=== PATIENT | male | born 1985 | race Caucasian/White ===

== ENCOUNTER 2017-03-11 12:00 | Emergency (ER) | payer SELFPAY ==
[2017-03-11 12:06] VITALS: BP 144/81
[2017-03-11] MEDS ORDERED: Ibuprofen TAB* 800 MG PO ONE (13:07)
--- NOTE | 2017-03-11 13:27 | ED ---
Lower Extremity - HPI Summary HPI Summary: Pt here w/ Rt foot pain after stepping onto it awkwardly today. Was at work as a site operations manager metal fabricator apprentice and as he stepped through an opening in a wall w/ a box in his hands, he misstepped and had pain as well as "popping" in his Rt foot/ ankle. Has some swelling along his instep - tender to touch, bear weight and move. Denies new onset numbness, tingling, weakness here - h/o injury while [place] and had surgery in this ankle/foot in the past - has baseline limited ROM as a result. - History of Current Complaint Chief Complaint: EDExtremityLower Stated Complaint: RIGHT FOOT INJURY Time Seen by Provider: 03/11/17 12:20 Hx Obtained From: Patient Pain Intensity: 7 - Allergies/Home Medications Allergies/Adverse Reactions: Allergies Allergy/AdvReac Type Severity Reaction Status Date / Time Penicillins Allergy Hives Verified 03/11/17 12:04 PMH/Surg Hx/FS Hx/Imm Hx Previously Healthy: Yes Endocrine/Hematology History: Denies: Hx Anticoagulant Therapy, Hx Blood Disorders Musculoskeletal History: Reports: Hx Arthritis - Rt ankle/foot - surgical repair s/p war injury Sensory History: Reports: Hx Contacts or Glasses Opthamlomology History: Reports: Hx Contacts or Glasses Psychiatric History: Reports: Hx Anxiety, Hx Depression - takes amitriptyline Infectious Disease History: Denies: Traveled Outside the [place] in Last 30 Days - Social History Occupation: Employed Full-time Lives: With Family Alcohol Use: Occasionally - couple of times a month Hx Substance Use: Yes Substance Use Type: Reports: Marijuana - prescribed for chronic pain Hx Tobacco Use: No Smoking Status (MU): Never Smoked Tobacco Review of Systems Positive: no symptoms reported Musculoskeletal: Other - see HPI Skin: Negative Neurological: Negative Psychological: Normal All Other Systems Reviewed And Are Negative: Yes Physical Exam Triage Information Reviewed: Yes Vital Signs On Initial Exam: Initial Vitals Temp Pulse Resp BP Pulse Ox 98.2 F 81 16 144/81 97 03/11/17 12:04 03/11/17 12:04 03/11/17 12:04 03/11/17 12:04 03/11/17 12:04 Vital Signs Reviewed: Yes Appearance: Positive: Well-Appearing, No Pain Distress, Well-Nourished Skin: Positive: Warm, Dry - no erythema, no ecchymosis over affected - healed surgical scar over Rt intep/annkle area Eyes: Positive: EOMI ENT: Positive: Hearing grossly normal Cardiovascular: Positive: Pulses are Symmetrical in both Upper and Lower Extremities Musculoskeletal: Positive: Limited @ - Rt ankle and toes limited - pt reports some is d/t pain but most is baseline stiffness from previous surgery, Pain @ - Rt instep w/ edema and TTP Neurological: Positive: Normal, Sensory/Motor Intact - as above, Alert, Oriented to Person Place, Time, CN Intact II-III Psychiatric: Positive: Normal Diagnostics - Vital Signs Vital Signs Temp Pulse Resp BP Pulse Ox 03/11/17 12:04 98.2 F 81 16 144/81 97 - Laboratory Lab Statement: Any lab studies that have been ordered have been reviewed, and results considered in the medical decision making process. Lower Extremity Course/Dx - Diagnoses Provider Diagnoses: Right foot sprain Discharge - Discharge Plan Condition: Stable Disposition: HOME Patient Education Materials: Foot Sprain (ED), Crutch Instructions (ED) Forms: *Work Release Referrals: Shruti Shearer [Primary Care Provider] - Additional Instructions: Rest, ice, elevate, wrap with LAVERNE wrap Avoid weight bearing by using crutches Take ibuprofen with food as needed for pain, swelling Follow-up with PCP next week of pain persists.
--- NOTE | 2017-03-11 13:54 | RAD ---
Indication: Right foot pain. 3 views of the right foot demonstrates no fracture. There is fusion of the scaphoid to the talus and calcaneus to the talus. IMPRESSION: Fusion of the right foot no fracture.
== END 2017-03-11 14:30 | disposition home or self-care (01) ==
LOC: ED 12:00
DX: S93.601A Unspecified sprain of right foot, initial encounter (principal); X50.1XXA Overexertion from prolonged static or awkward postures, initial encounter; Y92.9 Unspecified place or not applicable; Z88.0 Allergy status to penicillin
CPT/HCPCS: 99282; A9270-GY

== ENCOUNTER → 2017-08-21 05:49 | Day surgery (SDC) | payer OTHER ==
[~2017-08-21 05:49] MED LIST: Atracurium* 10 MG/ML 10 ML VIAL ONE; Buffered Lidocaine 0.9% SYRIN* 5 ML/SYR SYRINGE INTRADERM ONE; Buffered Lidocaine 0.9% SYRIN* 5 ML/SYR SYRINGE ONE; Bupivacaine 0.5% SDV PF* 10-30ML VIAL ONE; Clindamycin 900 MG IVPREMIX(* 900 MG/50 ML SDV IV ONE; Dexamethasone IV* 4 MG/ML 1 ML (4 MG) IV SLOW PU ONE; Dexamethasone IV* 4 MG/ML 1 ML (4 MG) ONE; DiMENhydriNATE IV* 50 MG/ML VIAL IV PUSH PRN; Famotidine IV* 10 MG/ML 2 ML (20 mg) IV ONE; Famotidine IV* 10 MG/ML 2 ML (20 mg) ONE; HYDROmorphone INJ* 1 MG/ML CARPUJECT SYRINGE IV PRN; Ketorolac INJ* 30 MG/ML 1 ML VIAL ONE; Lidocaine 2% PF * 5 ML VIAL ONE; Midazolam* 1 MG/ML 10 ML VIAL (10 MG) ONE; Naloxone* 0.4 MG/ML 1 ML VIAL IV PRN; Ondansetron INJ* 2 MG/ML VIAL IV PRN; Ondansetron INJ* 2 MG/ML VIAL ONE; Propofol* 10 MG/ML 20 ML BTL IV PUSH ONE; fentaNYL* 50 MCG/ML 2 ML VIAL (100 MCG VIAL) IV PRN; fentaNYL* 50 MCG/ML 2 ML VIAL (100 MCG VIAL) ONE; fentaNYL* 50 MCG/ML 5 ML VIAL (250 MCG VIAL) ONE; oxyCODONE/Acetamin 5/325 MG* TAB ONE; oxyCODONE/Acetamin 5/325 MG* TAB PO PRN
[2017-08-21 11:02] VITALS: BP 155/98
--- NOTE | 2017-08-22 01:20 | OP ---
DATE OF OPERATION: 08/21/17 - [facility] DATE OF : 87 SURGEON: Charly Michel MD RN TEACHER: SHUKRI Schaefer ANESTHESIOLOGIST: Dr. Joshua Lira. ANESTHESIA: General endotracheal anesthesia with local anesthesia provided by the surgeon. PRE-OP DIAGNOSES: 1. Painful retained hardware, right foot. 2. Anterior tibial tendonitis and tenosynovitis. POST-OP DIAGNOSES: 1. Painful retained hardware, right foot. 2. Anterior tibial tendonitis and tenosynovitis. OPERATIVE PROCEDURE: 1. Removal of deep implants from right foot. 2. Tenolysis of right anterior tibial tendon. ESTIMATED BLOOD LOSS: Minimal. TOURNIQUET TIME: 27 minutes with an ankle Esmarch tourniquet. SPECIMENS: None. STATUS: Stable from the operating room to the PACU and then home. IMPLANTS: None implanted. INDICATIONS FOR PROCEDURE: Javier is a of the [place] war, who sustained traumatic injury to his right hindfoot and has had multiple surgeries. He has been having pain along his anterior tibial tendon as well as pain from his hardware. We discussed both nonoperative and operative treatment options, and he decided he would like to move forward with surgery to remove the hardware and explore the anterior tibial tendon. Our discussions regarding surgery included, but were not limited to the risks of surgery, which are infection, wound problems, nerve injury, neuroma, RSD, persistent symptoms, broken or retained hardware, need for further surgery and event the remote chance of a catastrophic complication. DESCRIPTION OF PROCEDURE: The patient was seen in the preoperative holding unit and an informed written consent was obtained. The appropriate extremity was marked. The patient was then brought to the operating room and carefully positioned on the operating room table. Anesthesia was induced. All bony prominences were padded with great care. A chlorhexidine based pre-scrub was performed followed by a standard prep and drape with ChloraPrep. Surgical safety pause was then conducted in which we confirmed the appropriate patient, extremity, planned procedure, availability of equipment, indication and administration of prophylactic antibiotics and DVT prophylaxis in the form of compression boot on the nonsurgical extremity. I began with an Esmarch exsanguination and placement of an ankle Esmarch tourniquet. We then used C-arm to brayden out the heads of the screws, which were consistent with where his incisions were. I utilized the prior anteromedial ankle incision and was careful to avoid injury to the saphenous nerve and vein. The anterior tibial tendon was exposed and was sheath and a large amount of scar especially distally. This was all released. There was some inflammatory tenosynovium as well, which was debrided sharply. Fluoroscopy was then used to identify the talonavicular fusion screws. One of the screws was actually sitting just deep to the anterior tibial tendon with a prominent head. This was exposed without detaching the anterior tibial tendon. There was some overgrowth of bone, which was removed with a rongeur and osteotome. I then removed the screw without any difficulty. Some more adhesions of the anterior tibial tendon were then released in the area of the screw head as well. Fluoroscopy was then utilized to find the inferior talonavicular fusion screw, which also had some bony overgrowth, which was removed in the same manner. The screw was also removed without difficulty. Attention was then turned to the heel where fluoroscopy was used to confirm the placement of the subtalar fusion screws. A 1-cm incision was made over the screw heads and blunt dissection was used to go down to the level of the screw heads. A guidewire for the 6.5 cannulated screw was placed into each of the screws and the screws were removed without difficulty. The anterior tibial tendon was then visualized again and all remaining adhesions and inflamed tenosynovium was excised sharply. The anterior tibial tendon remained in continuity after this. At this time, both of the wounds were copiously irrigated and then closed in a layered fashion utilizing 3-0 Monocryl and 3-0 nylon. A sterile dressing was applied. He was then awakened from anesthesia and transferred to the recovery room in stable condition. There were no complications. All needle and sponge counts were correct at the end of the case. ATTESTATION: I attest that I was present, scrubbed and performed the entire procedure myself. POSTOPERATIVE PLAN: Javier will remain nonweightbearing for the next two weeks while the wounds heal. He will then follow up at that time for a suture removal and Steri-Strips application. [id number]/CPS #: [id number] BASIA
--- NOTE | 2017-08-27 13:45 | RAD ---
INDICATION: Removal of hardware. COMPARISON: May 26, 2017 radiographs. TECHNIQUE: 8.5 seconds fluoroscopy. FINDINGS: Spot image documents absence of screws present on the May 26, 2017 abdomen radiograph. Subtalar and talonavicular fusion. IMPRESSION: Procedural fluoroscopy. CPT II Codes: 6045F
== END | disposition home or self-care (01) ==
LOC: OR 05:49
PROVIDERS: ATTEND Orthopaedic Surgery
DX: T84.84XA Pain due to internal orthopedic prosthetic devices, implants and grafts, initial encounter (principal); M76.811 Anterior tibial syndrome, right leg; M65.871 Other synovitis and tenosynovitis, right ankle and foot; F32.9 Major depressive disorder, single episode, unspecified; F41.9 Anxiety disorder, unspecified; Z88.0 Allergy status to penicillin
CPT/HCPCS: 76000; 88300; A9270-GY; J1100; J1885; J2250; J2405; J2704; J3010